=== PATIENT | female | born 1975 | race Caucasian/White ===

== ENCOUNTER 2018-09-19 19:09 | Inpatient (IN) | payer MEDICAID ==
[2018-09-19] MEDS: hydrALAzine 20 MG INJ IV (19:56)
[2018-09-19 20:00] LABS: ADD MAN DIFF? NO
[2018-09-19 20:05] LABS: BASOPHIL # 0.1 10^3/ul (0.0-0.1); BASOPHILS % 0.9 % (0.0-2.0); EOSINOPHILS # 0.2 10^3/ul (0.0-0.5); EOSINOPHILS % 1.9 % (0.0-7.0); HEMATOCRIT 35.1 % (37.0-47.0); HEMOGLOBIN 11.3 g/dl (12.0-16.0); LYMPHOCYTES # 1.9 10^3/ul (0.8-2.9); LYMPHOCYTES % 17.4 % (15.0-51.0); MEAN CORPUSCULAR HEMOGLOBIN 25.2 pg (29.0-33.0); MEAN CORPUSCULAR HGB CONC 32.2 g/dl (32.0-37.0); MEAN CORPUSCULAR VOLUME 78.2 fl (82.0-101.0); MEAN PLATELET VOLUME 9.7 fl (7.4-10.4); MONOCYTE # 0.5 10^3/ul (0.3-0.9); MONOCYTES % 4.4 % (0.0-11.0); NEUTROPHIL # 8.2 10^3/ul (1.6-7.5); NEUTROPHILS % 74.8 % (39.0-77.0); NUCLEATED RED BLOOD CELLS% 0.2 /100WBC (0.0-0.0); PLATELET COUNT 351 10^3/UL (140-415); RED BLOOD COUNT 4.49 10^6/ul (4.20-5.40); RED CELL DISTRIBUTION WIDTH 14.6 % (11.5-14.5)
[2018-09-19 20:22] LABS: ALANINE AMINOTRANSFERASE 69 IU/L (13-69); ALBUMIN 3.6 g/dl (3.3-4.9); ALBUMIN/GLOBULIN RATIO 1.33; ALKALINE PHOSPHATASE 54 IU/L (42-121); ANION GAP 11 (5-13); ASPARTATE AMINO TRANSFERASE 50 IU/L (15-46); BILIRUBIN,INDIRECT 0.6 mg/dl (0-1.1); BILIRUBIN,TOTAL 0.6 mg/dl (0.2-1.3); BLOOD UREA NITROGEN 28 mg/dl (7-20); CARBON DIOXIDE 21 mmol/L (21-31); CHLORIDE 107 mmol/L (97-110); CREATININE 1.09 mg/dl (0.44-1.00); Estimated GFR 55 mL/min (>60); GLUCOSE 125 mg/dl (70-220); SODIUM 139 mmol/L (135-144); TOTAL PROTEIN 6.3 g/dl (6.1-8.1)
[2018-09-19 20:30] LABS: B-TYPE NATRIURETIC PEPTIDE 10500 PG/ML (0-125)
[2018-09-19 20:35] LABS: TROPONIN-I 0.032 ng/ml (0.000-0.120)
[2018-09-19 20:47] LABS: ADD UMIC YES; UR ASCORBIC ACID NEGATIVE (NEGATIVE); UR BILIRUBIN (Dip) NEGATIVE (NEGATIVE); UR BLOOD (Dip) NEGATIVE (NEGATIVE); UR CLARITY CLEAR (CLEAR); UR COLOR YELLOW (YELLOW); UR GLUCOSE (Dip) NEGATIVE (NEGATIVE); UR KETONES (Dip) NEGATIVE (NEGATIVE); UR LEUKOCYTE ESTERASE (Dip) NEGATIVE Leu/ul (NEGATIVE); UR MUCUS FEW /HPF (NONE SEEN); UR NITRITE (Dip) NEGATIVE (NEGATIVE); UR RBC 0 /HPF (0-5); UR SPECIFIC GRAVITY (Dip) 1.015 (1.003-1.030); UR SQUAMOUS EPITHELIAL CELL FEW /HPF (FEW); UR TOTAL PROTEIN (Dip) 2+ mg/dl (NEGATIVE); UR UROBILINOGEN (Dip) NEGATIVE (NEGATIVE); UR WBC 1 /HPF (0-5)
[2018-09-19] MEDS: FUROSEMIDE 20 MG INJ IV (21:31)
[2018-09-19] MEDS: METOPROLOL 5 MG INJ IV (21:32)
[2018-09-19] MEDS ORDERED: ONDANSETRON 4 MG INJ IV (22:00)
[2018-09-20] MEDS ORDERED: NITROGLYCERIN (SL) 0.4 MG TAB SL
[2018-09-20] MEDS ORDERED: IPRATROPIUM (NEB) 0.5 MG/2.5 ML AMP NEB
[2018-09-20] MEDS ORDERED: LABETALOL HCL 20MG INJ IV
[2018-09-20] MEDS ORDERED: LEVALBUTEROL (NEB) 0.63 MG/3 ML AMP HHN
[2018-09-20] MEDS ORDERED: ONDANSETRON 4 MG INJ IV
[2018-09-20] MEDS ORDERED: NACL 0.9% 3 ML SYG IV
[2018-09-20 01:35] LABS: CREATINE KINASE 63 IU/L (23-200)
[2018-09-20 01:46] LABS: TROPONIN-I 0.049 ng/ml (0.000-0.120)
[2018-09-20 01:47] LABS: CK INDEX 2.4
[2018-09-20] MEDS: AMLODIPINE 10 MG TAB PO (03:49)
[2018-09-20] MEDS: hydrALAzine 20 MG INJ IV ×2 (03:50→14:54)
[2018-09-20] MEDS: ACETAMINOPHEN 325 MG TAB PO (03:57)
[2018-09-20 05:41] LABS: ADD MAN DIFF? NO
[2018-09-20 05:43] LABS: BASOPHIL # 0.1 10^3/ul (0.0-0.1); BASOPHILS % 0.9 % (0.0-2.0); EOSINOPHILS # 0.2 10^3/ul (0.0-0.5); EOSINOPHILS % 2.5 % (0.0-7.0); HEMATOCRIT 33.2 % (37.0-47.0); HEMOGLOBIN 10.9 g/dl (12.0-16.0); LYMPHOCYTES # 1.6 10^3/ul (0.8-2.9); MEAN CORPUSCULAR HEMOGLOBIN 25.3 pg (29.0-33.0); MEAN CORPUSCULAR HGB CONC 32.8 g/dl (32.0-37.0); MEAN CORPUSCULAR VOLUME 77.2 fl (82.0-101.0); MEAN PLATELET VOLUME 9.4 fl (7.4-10.4); MONOCYTE # 0.6 10^3/ul (0.3-0.9); MONOCYTES % 6.9 % (0.0-11.0); NEUTROPHIL # 6.6 10^3/ul (1.6-7.5); NEUTROPHILS % 71.6 % (39.0-77.0); PLATELET COUNT 317 10^3/UL (140-415); RED CELL DISTRIBUTION WIDTH 14.6 % (11.5-14.5)
[2018-09-20 05:43] LABS: WHITE BLOOD COUNT 9.3 10^3/ul (4.8-10.8)
[2018-09-20 05:58] LABS: CREATINE KINASE 50 IU/L (23-200)
[2018-09-20 06:04] LABS: HEMOGLOBIN A1C 5.7 % (0-5.9)
[2018-09-20 06:08] LABS: ALANINE AMINOTRANSFERASE 55 IU/L (13-69); ALBUMIN 3.3 g/dl (3.3-4.9); ALBUMIN/GLOBULIN RATIO 1.32; ALKALINE PHOSPHATASE 46 IU/L (42-121); ANION GAP 10 (5-13); ASPARTATE AMINO TRANSFERASE 35 IU/L (15-46); BILIRUBIN,INDIRECT 0.4 mg/dl (0-1.1); BILIRUBIN,TOTAL 0.4 mg/dl (0.2-1.3); BLOOD UREA NITROGEN 24 mg/dl (7-20); CALCIUM 9.1 mg/dl (8.4-10.2); CARBON DIOXIDE 27 mmol/L (21-31); CHLORIDE 103 mmol/L (97-110); CHOLESTEROL 121 mg/dl (100-200); CK INDEX 2.9; CK-MB 1.43 ng/ml (0.0-2.4); CREATININE 1.05 mg/dl (0.44-1.00); Estimated GFR 57 mL/min (>60); GLUCOSE 78 mg/dl (70-220); HDL CHOLESTEROL 30 mg/dl (34-88); LDL CHOLESTEROL,CALCULATED 62 mg/dl; MAGNESIUM 1.4 mg/dl (1.7-2.5); POTASSIUM 3.3 mmol/L (3.5-5.1); SODIUM 140 mmol/L (135-144); TOTAL PROTEIN 5.8 g/dl (6.1-8.1); TRIGLYCERIDES 145 mg/dl (0-149)
[2018-09-20 06:11] LABS: TROPONIN-I 0.064 ng/ml (0.000-0.120)
[2018-09-20] MEDS: LISINOPRIL 20 MG TAB PO ×2 (08:57→20:31)
[2018-09-20] MEDS: HEPARIN 5,000 UNIT/1 ML VIAL SC ×2 (09:06→20:40)
[2018-09-20] MEDS: POTASSIUM CHLORIDE (SR) 20 MEQ TAB PO (11:16)
[2018-09-20] MEDS: MAGNESIUM SULFATE 3 GM in DEXTROSE 5% 100 ML IVPB (12:40)
[2018-09-20 15:07] LABS: B-TYPE NATRIURETIC PEPTIDE 7070 PG/ML (0-125)
[2018-09-20] MEDS: SPIRONOLACTONE 25 MG TAB PO (20:30)
[2018-09-21] MEDS: hydrALAzine 20 MG INJ IV ×2 (03:44→10:31)
[2018-09-21] MEDS: ACETAMINOPHEN 325 MG TAB PO (06:05)
[2018-09-21 06:29] LABS: ADD MAN DIFF? NO
[2018-09-21 06:38] LABS: WHITE BLOOD COUNT 10.1 10^3/ul (4.8-10.8)
[2018-09-21 06:38] LABS: BASOPHIL # 0.1 10^3/ul (0.0-0.1); BASOPHILS % 0.9 % (0.0-2.0); EOSINOPHILS # 0.3 10^3/ul (0.0-0.5); EOSINOPHILS % 3.2 % (0.0-7.0); HEMATOCRIT 36.1 % (37.0-47.0); HEMOGLOBIN 11.7 g/dl (12.0-16.0); LYMPHOCYTES # 1.8 10^3/ul (0.8-2.9); LYMPHOCYTES % 17.4 % (15.0-51.0); MEAN CORPUSCULAR HEMOGLOBIN 24.9 pg (29.0-33.0); MEAN CORPUSCULAR HGB CONC 32.4 g/dl (32.0-37.0); MEAN PLATELET VOLUME 9.6 fl (7.4-10.4); MONOCYTE # 0.7 10^3/ul (0.3-0.9); MONOCYTES % 7.2 % (0.0-11.0); NEUTROPHIL # 7.2 10^3/ul (1.6-7.5); NEUTROPHILS % 70.7 % (39.0-77.0); PLATELET COUNT 357 10^3/UL (140-415); RED BLOOD COUNT 4.69 10^6/ul (4.20-5.40); RED CELL DISTRIBUTION WIDTH 14.7 % (11.5-14.5)
[2018-09-21 07:07] LABS: ANION GAP 9 (5-13); BLOOD UREA NITROGEN 23 mg/dl (7-20); CALCIUM 8.8 mg/dl (8.4-10.2); CARBON DIOXIDE 25 mmol/L (21-31); CHLORIDE 103 mmol/L (97-110); CREATININE 0.97 mg/dl (0.44-1.00); Estimated GFR > 60 mL/min (>60); GLUCOSE 100 mg/dl (70-220); POTASSIUM 4.4 mmol/L (3.5-5.1); SODIUM 137 mmol/L (135-144)
[2018-09-21 07:10] LABS: MAGNESIUM 1.9 mg/dl (1.7-2.5)
[2018-09-21 07:10] LABS: B-TYPE NATRIURETIC PEPTIDE 2540 PG/ML (0-125)
[2018-09-21] MEDS: SPIRONOLACTONE 25 MG TAB PO (08:20)
[2018-09-21] MEDS: LISINOPRIL 20 MG TAB PO (08:21)
[2018-09-21] MEDS: HEPARIN 5,000 UNIT/1 ML VIAL SC (08:31)
== END 2018-09-21 12:40 | disposition home or self-care (01) | DRG 291 ==
LOC: 6WM 22:09 → E/R 19:09 → 6WM 22:30
DX: I11.0 Hypertensive heart disease with heart failure (principal); I50.31 Acute diastolic (congestive) heart failure; Z68.42 Body mass index [BMI] 45.0-49.9, adult; I16.1 Hypertensive emergency; E66.01 Morbid (severe) obesity due to excess calories; I16.0 Hypertensive urgency; G47.33 Obstructive sleep apnea (adult) (pediatric)
CPT/HCPCS: 36415; 71045; 80048; 80053; 80061; 81001; 81025; 82550; 82553; 83036; 83735; 83880; 84100; 84443; 84484; 85025; 93005; 93306; 96374; 96375; 99291-25